=== PATIENT | female | born 1940 | race Caucasian/White ===

== ENCOUNTER → 2016-12-12 | Outpatient (CLI) | payer OTHER | LOC: CIMAGING 12:31 | PROVIDERS: ATTEND Internal Medicine | DX: N28.9 Disorder of kidney and ureter, unspecified (principal) | CPT/HCPCS: 76770-PO ==

== ENCOUNTER → 2017-03-18 | Outpatient (CLI) | payer OTHER | LOC: CIMAGING 14:18 | PROVIDERS: ATTEND Internal Medicine | DX: R06.02 Shortness of breath (principal); R91.8 Other nonspecific abnormal finding of lung field | CPT/HCPCS: 71046-PO ==

== ENCOUNTER → 2017-04-07 | Outpatient (CLI) | payer OTHER | LOC: BHFA 09:30 | PROVIDERS: ATTEND Internal Medicine Interventional Cardiology | DX: I25.10 Atherosclerotic heart disease of native coronary artery without angina pectoris (principal); I10 Essential (primary) hypertension; R06.02 Shortness of breath | CPT/HCPCS: 78452; 93017; A9500; J2785 ==

== ENCOUNTER → 2017-04-22 | Outpatient (CLI) | payer OTHER | LOC: BHFA 10:45 | PROVIDERS: ATTEND Internal Medicine | DX: I25.10 Atherosclerotic heart disease of native coronary artery without angina pectoris (principal); I10 Essential (primary) hypertension; R06.02 Shortness of breath ==

== ENCOUNTER → 2017-05-08 | Outpatient (CLI) | payer OTHER | LOC: CIMAGING 12:42 | PROVIDERS: ATTEND Internal Medicine Cardiovascular Disease | DX: R60.9 Edema, unspecified (principal); R29.898 Other symptoms and signs involving the musculoskeletal system; R06.02 Shortness of breath | CPT/HCPCS: 93970-PO ==

== ENCOUNTER → 2018-08-03 | Outpatient (CLI) | payer OTHER | LOC: CIMAGING 13:13 ==